=== PATIENT | female | born 1980 | race African-American/Black ===

== ENCOUNTER → 2017-09-28 | Emergency (ER) | payer MEDICAID ==
[~2017-09-28] VITALS: Ht 160 cm; Wt 85.0 kg
[2017-09-28 23:57] VITALS: BP 122/54
[2017-09-29 01:54] LABS: Urine Bacteria FEW /hpf (None Seen); Urine Blood Negative /uL (Negative); Urine WBC 1 /hpf (0 - 5)
== END | disposition left against medical advice (07) ==
LOC: ER 23:13
DX: R35.0 Frequency of micturition (principal); Z53.21 Procedure and treatment not carried out due to patient leaving prior to being seen by health care provider
CPT/HCPCS: 81001